=== PATIENT | female | born 1990 | race Caucasian/White ===

== ENCOUNTER 2016-12-30 10:52 | Emergency (ER) | payer SELFPAY ==
[~2016-12-30] VITALS: Ht 162.6 cm; Wt 110.0 kg
[2016-12-30] MEDS ORDERED: OMEP20CA10 PO (10:59)
[2016-12-30] MEDS ORDERED: ZOLP6.252 PO (10:59)
[2016-12-30] MEDS ORDERED: METF500T4 PO (10:59)
[2016-12-30] MEDS ORDERED: TOPI25TA7 PO (10:59)
[2016-12-30] MEDS ORDERED: ESCI5TAB PO (10:59)
[2016-12-30] MEDS ORDERED: SODIUM CHLORIDE 0.9% 1,000 ML IV ONE (11:17)
[2016-12-30 12:10] LABS: HCG SCREEN NEGATIVE
[2016-12-30 12:14] LABS: BASOPHILS % 0.6 % (0.0-2.0); HEMATOCRIT. 40.3 % (36.0-48.0); LYMPHOCYTES % 29.9 % (20.0-50.0); MEAN CORPUSCULAR HEMOGLOBIN 27.4 pg (28.0-32.0); MEAN CORPUSCULAR HGB CONC 32.1 g/dL (31.0-37.0); MEAN CORPUSCULAR VOLUME 85.3 fL (81.0-99.0); MONOCYTES % 7.2 % (2.0-8.0); NEUTROPHILS % 59.3 % (40.0-76.0); PLATELET 272 x1000/uL (130-400); RED BLOOD CELL COUNT 4.73 mill/uL (4.2-5.4); RED CELL DISTRIBUTION WIDTH 14.9 % (11.6-14.6); WHITE BLOOD COUNT 11.9 x1000/uL (4.5-11.0)
[2016-12-30 12:19] LABS: CHLORIDE 111 mEq/L (98-107); INDEX HEMOLYSI 1 (1-3); INDEX ICTERIC 1 (1-4); INDEX LIPEMIC 1 (1-3)
[2016-12-30 12:23] LABS: ALBUMIN 3.1 g/dL (3.4-5.0); ANION GAP 13; CALCIUM 8.6 mg/dL (8.5-10.1); CARBON DIOXIDE 23 mEq/L (21-32); UREA NITROGEN BLOOD 8 mg/dL (7-21)
[2016-12-30 12:26] LABS: AMMONIA 27 uMol/L (<32)
[2016-12-30 12:30] LABS: ACETAMINOPHEN < 2 ug/mL (10-30); ALANINE AMINOTRANSFERASE 29 IU/L (13-61); CREATINE KINASE 88 IU/L (26-192); ETHANOL BLOOD < 10 mg/dL; eGFR > 60 mL/min (>60)
[2016-12-30 17:21] LABS: CLARITY URINE CLEAR (CLEAR); COLOR URINE YELLOW (YELLOW); GLUCOSE URINE NEGATIVE (NEGATIVE); KETONES URINE NEGATIVE (NEGATIVE); LEUKOCYTE ESTERASE URINE TRACE (NEGATIVE); NITRITE URINE NEGATIVE (NEGATIVE); OCCULT BLOOD URINE NEGATIVE (NEGATIVE); PH URINE 6.5 (4.5-8.0); PROTEIN URINE NEGATIVE (NEGATIVE); SPECIFIC GRAVITY URINE 1.011 (1.005-1.030); UROBILINOGEN URINE 0.2 E.U./dL (0.2-1.0)
[2016-12-30 17:36] LABS: BACTERIA URINE 1+; RBC URINE 0-2 /hpf (0-2); SQUAMOUS EPITHELIAL CELL URINE FEW /lpf (RARE/1+); WBC URINE 0-2 /hpf (0-2)
[2016-12-30 17:38] LABS: *AMPHETAMINES SCREEN URINE NEGATIVE (NEGATIVE); *BARBITURATES SCREEN URINE NEGATIVE (NEGATIVE); *BENZODIAZEPINES SCREEN URINE NEGATIVE (NEGATIVE); *COCAINE SCREEN URINE NEGATIVE (NEGATIVE); CANNABINOID URINE SCREEN NEGATIVE (NEGATIVE); ECSTASY MDMA SCREEN URINE NEGATIVE (NEGATIVE); METHADONE URINE SCREEN NEGATIVE (NEGATIVE); OPIATES URINE SCREEN NEGATIVE (NEGATIVE); PHENCYCLIDINE URINE SCREEN NEGATIVE (NEGATIVE)
[2016-12-31 22:23] VITALS: BP 114/62
== END 2016-12-31 22:31 ==
LOC: ER 11:26
DX: T42.6X1A Poisoning by other antiepileptic and sedative-hypnotic drugs, accidental (unintentional), initial encounter (principal); R40.0 Somnolence; F32.9 Major depressive disorder, single episode, unspecified; F84.5 Asperger's syndrome; Y92.520 Airport as the place of occurrence of the external cause
CPT/HCPCS: 36415; 80053; 80305; 80307; 80329; 81001; 82140; 82550; 84443; 84703; 85025; 93005; 96360; 96361; 99285; G0482; J7030; Z7610